=== PATIENT | male | born 1950 | race Caucasian/White ===

== ENCOUNTER 2022-10-05 15:53 | Emergency (ER) | payer MEDICARE, SELFPAY ==
[2022-10-05] VITALS (20 sets, daily range): BP systolic 114–159; BP diastolic 75–89; PULSE 94–96; RESP 18; TEMP 37; O2SAT 93–99
[2022-10-05 16:44] LABS: Basophils Absolute Auto 0.1 K/mm3 (0.0-0.1); Eosinophils Absolute Auto 0.4 K/mm3 (0-0.3); Eosinophils Percent Auto 5.1 % (0-4.4); Hemoglobin 13.2 g/dL (14.0-18.0); Immature Granulocyte Absolute 0.03 K/mm3 (0.00-0.031); Immature Granulocyte Percent A 0.4 % (0-0.5); Lymphocytes Absolute Auto 1.67 K/mm3 (0.9-3.2); Lymphocytes Percent Auto 23.1 % (18.3-44.2); Mean Corpuscular HGB Conc 30.7 g/dl (32-36); Mean Corpuscular Hemoglobin 26.2 pg (26-34); Mean Corpuscular Volume 85.5 fl (80-100); Mean Platelet Volume 8.3 fl (7.4-10.4); Monocytes Absolute Auto 0.7 K/mm3 (0.1-0.6); Monocytes Percent Auto 10.1 % (2.6-8.5); Neutrophils Absolute Auto 4.4 K/mm3 (1.3-6.7); Neutrophils Percent Auto 60.3 % (45.5-73.1); Platelet Count Result 500 k/mm3 (150-375); Red Blood Count 5.03 M/mm3 (4.6-6.20); White Blood Count 7.2 K/mm3 (4.5-10.0)
[2022-10-05 16:55] LABS: Chloride 103 mmol/L (98-107)
[2022-10-05 17:01] LABS: Anion Gap 7 mmol/L (8-16); Blood Urea Nitrogen 20 mg/dL (9-20); Calcium 9.2 mg/dL (8.4-10.2); Carbon Dioxide 29 mmol/L (22-30); Estimated CRCL calculation 59 ml/min; Estimated Glomerular Filt Rate > 60; Glucose 150 mg/dL (65-110); Potassium 5.3 mmol/L (3.4-5.0); Sodium 139 mmol/L (137-145)
--- NOTE | 2022-10-05 22:12 | ED.WOUNDLAC ---
HPI - Wound/Laceration General Chief Complaint: Wound/Laceration Stated Complaint: Wound Time Seen by Provider: 10/05/22 21:53 History of Present Illness HPI narrative: This is a 72-year-old male with past medical history of diabetes and chronic wound of the right lower leg, who was sent in by his facility for evaluation. He states the pain is painful when manipulated but at present is not bothering him. He denies fevers or chills. On review of [facility] paperwork, it notes expansion of the wound over the past week with request for evaluation. Review of Systems Review of Systems: CONSTITUTIONAL: Denies fever, chills, or sweats. CARDIOVASCULAR: Denies chest pain, palpitations, or edema. RESPIRATORY: Denies cough or dyspnea. GASTROINTESTINAL: Denies abdominal pain, nausea, vomiting, or diarrhea. GENITOURINARY: Denies dysuria or hematuria. SKIN: Chronic wound of the right foreleg denies rash or itching. MUSCULOSKELETAL: Denies back pain, joint pain, or myalgia. NEUROLOGIC: Denies headache, numbness, dizziness, or weakness. PSYCHIATRIC: Denies anxiety or depression. [facility] Past Medical History Medical History (Updated 10/07/22 @ 03:36 by Devon Gomez MD) Chronic wound of extremity Psoriasis Social History Social History (Updated 10/07/22 @ 03:36 by Devon Gomez MD) Smoking status: Never smoker Alcohol intake: never Substance use: never Exam Narrative: GENERAL: Well-appearing, well-nourished, and in no acute distress. HEAD: Normocephalic, atraumatic. EYES: PERRLA and EOMI. ENT: Nares clear, no rhinorrhea or epistaxis. Mucous membranes moist. Oropharynx without tonsillar hypertrophy exudate or other lesions. CHEST: Clear to auscultation. No respiratory distress. No wheezes rales or rhonchi HEART: Regular rate and rhythm. No murmur heard. Normal peripheral pulses, no noted cyanosis. ABDOMEN: Soft, nontender, nondistended, normal active bowel sounds. EXTREMITIES: Normal range of motion of all extremities. No edema. SKIN: A shallow, circumferential soft tissue wound is noted at the right distal foreleg, extending from the superior aspect of the ankle approximately 10 cm proximally. There is healthy appearing granulation tissue, without spreading erythema, induration or purulent drainage. There are scattered lesions on the bilateral legs and forehead consistent with psoriasis. Warm, dry, no rash. NEURO: No focal deficits. Alert and oriented x3. PSYCH: Normal mood and affect. Course Course Emergency Course: 22:40 - CBC unremarkable with white blood cell count of 7.2. Chemistries demonstrate mild hyperkalemia at 5.3 and mild hyperglycemia of 150 but are otherwise unremarkable. I discussed the patient with wound care [employer] (staff at the patient's jail facility). My examination, I do not suspect acute infection. [employer] is comfortable with discharge and will evaluate the patient in the morning. I discussed these findings and recommendations with the patient, who voiced understanding and is comfortable with the plan. All questions answered to his satisfaction. Vital Signs Vital signs: Vital Signs Temperature 98.6 F 10/05/22 16:30 Pulse Rate 96 10/05/22 16:30 Respiratory Rate 18 10/05/22 16:30 Blood Pressure 129/76 10/05/22 16:30 Pulse Oximetry 96 10/05/22 16:30 Oxygen Delivery Room Air 10/05/22 16:30 Temperature 98.6 F 10/05/22 16:30 Pulse Rate 99 10/06/22 00:29 Respiratory Rate 18 10/06/22 00:29 Blood Pressure 128/77 10/06/22 00:29 Pulse Oximetry 93 10/06/22 00:29 Oxygen Delivery Room Air 10/05/22 16:30 MDM - Wound/Laceration MDM Narrative Medical decision making narrative: Plan: Labs, reassess Differential Diagnosis Differential diagnosis: Likely other (Chronic wound, wound infection, psoriasis, other) Lab Data 10/05/22 16:37 10/05/22 16:37 Labs: Lab Results 10/05/22 10/05/22 Range
--- NOTE | 2022-10-05 22:20 | PC.NURSE ---
B leg wounds dressed with xeroform, ABD, and kerlix. Pt tolerated well.
--- NOTE | 2022-10-05 23:22 | PC.NURSE ---
Pt had 1 large bowel movement, cleaned and repositioned in bed. Brief replaced.
[2022-10-06] VITALS: O2SAT 95
[2022-10-06 00:01] VITALS: BP 142/86; O2SAT 94
[2022-10-06 00:15] VITALS: O2SAT 96
[2022-10-06 00:16] VITALS: BP 128/77; O2SAT 94
--- NOTE | 2022-10-06 00:21 | PC.NURSE ---
[facility] here
[2022-10-06 00:29] VITALS: BP 128/77; PULSE 99; RESP 18; O2SAT 93
== END 2022-10-06 00:29 ==
PROVIDERS: Emergency Medicine; Emergency Provider Preventive Medicine Aerospace Medicine; PCP Family Medicine
DX: S81.801A Unspecified open wound, right lower leg, initial encounter (principal); E87.5 Hyperkalemia; L40.9 Psoriasis, unspecified; X58.XXXA Exposure to other specified factors, initial encounter
CPT/HCPCS: 36415; 80048; 85025; 99283